=== PATIENT | male | born 1950 | race Two or more races ===

== ENCOUNTER → 2016-05-17 | Day surgery (SDC) | payer MEDICARE, MEDICAID ==
[2016-05-17] VITALS (9 sets, daily range): BP systolic 114–146; BP diastolic 78–95
[~2016-05-17] VITALS: Ht 185.4 cm; Wt 95.3 kg
[~2016-05-17] MED LIST: ASPIR 8181 MG ORAL; Alfentanil 2ml Inj ONE; Atropine Inj 1mg/10ml Syr IV PRN; Bupivacaine w/Epi 0.25% 30ml Vial INJ ONE; CARISOPRODOL250 MG ORAL; CATAPRES0.2 MG ORAL; DILTIAZEM 24HR120 M1 ORAL; Dexamethasone 4mg/ml vial ONE; DiphenhydrAMINE 50mg/ml Inj IVP PRN; GABAPENTIN400 MG ORAL; GEMFIBROZIL600 MG ORAL; HYDROCODON-ACE1 EA16 ORAL; HYDROXYZINE HCL10 M1 PO; Hydromorphone 0.5mg/0.5ml inj IVP PRN; Hydromorphone 0.5mg/0.5ml inj ONE; Ketorolac 30mg Inj IV PRN; Ketorolac 60mg Inj IV PRN; LORAZEPAM0.5 MG ORAL; LORazepam Inj 2mg/ml 1ml IV PRN; LR 1000ml 1,000 ML IVLG SCH; LR 1000ml ONE; Labetalol 5mg/ml 20ml vial IV PRN; Lidocaine 1% MPF 10mg/ml 5ml ONE; Meperidine 25mg/ml Inj IV PRN; Metoclopramide 10mg/2ml Inj IVP PRN; Midazolam 2mg/2ml Inj IVP PRN; Midazolam 2mg/2ml Inj ONE; NS Irrig 1000ml IRRIG ONE; NS Irrig 1000ml ONE; Norco 5mg/325mg tab ORAL PRN; Norco 7.5mg/325mg tab ORAL PRN; OMEPRAZOLE40 M1 ORAL; Oxycodone/Acetaminophen 5-325 ORAL PRN; Propofol 10mg/ml 20ml IV ONE; Sterile Water Irrig 1000ml IRRIG ONE; TRAMADOL HCL50 MG ORAL; fentaNYL 100 mcg/2 mL IV PRN; hydromorphone PO
--- NOTE | 2016-05-17 06:53 | Anethesia Preoperative Eval ---
Anesthesia Pre-op PMH/ROS General Date of Evaluation: May 17, 2016 Time of Evaluation: 07:11 Anesthesiologist: Leno ASA Score: ASA 3 Mallampati Score Class I : Soft palate, uvula, fauces, pillars visible Class II: Soft palate, uvula, fauces visible Class III: Soft palate, base of uvula visible Class IV: Only hard plate visible Mallampati Classification: Class II Surgeon: Rashi Diagnosis: Soft Tissue Mass Post Occipital Area Surgical Procedure: Remove Soft Tissue Mass Post Occipital Area Anesthesia History: none Family History: no anesthesia problems Allergies: Coded Allergies: MORPHINE (Verified Allergy, Unknown, HIVES; "WEIRD FEELING", 05/16/16) Medications: see eMAR Past Medical History Cardiovascular: Reports: HTN, other - HL Pulmonary: Reports: other - Lung CA, Lobectomy HEENT: Reports: glaucoma Hematology/Immune: Reports: anemia, other - Lung CA PSxH Narrative: R Lung Lobectomy, Parathyroidectomy, RIH repair, Mult Spine Sxs Anesthesia Pre-op Phys. Exam Physician Exam Last Vital Signs Date Time Temp Pulse Resp B/P Pulse Ox O2 Delivery O2 Flow Rate FiO2 05/17/16 06:22 98.1 98 18 142/89 98 Room Air Constitutional: NAD Neurologic: CN 2-12 intact Cardiovascular: RRR Respiratory: CTA Gastrointestinal: S/NT/ND Airway Exam Mallampati Score: Class II MO: limited ROM: limited Teeth: missing, intact Anesthesia Pre-op A/P Risk Assessment & Plan Assessment: ASA 3 Plan: ASA 3 Status Change Before Surgery: No Pre-Antibiotics Dru Gram Ancef IV Given Within 1 Hr of Incision: Yes Time Given: 07:26 Les Burr MD May 17, 2016 06:53
--- NOTE | 2016-05-17 06:57 | Immediate Post-Op Evaluation ---
Immediate Post-Op Evalulation Immediate Post-Op Evalulation Procedure: Remove Soft Tissue Mass Post Occipital Area Date of Evaluation: May 17, 2016 Time of Evaluation: 08:30 IV Fluids: 600 LR Blood Products: 0 Estimated Blood Loss: 7 Urinary Output: 0 Blood Pressure Systolic: 124 Blood Pressure Diastolic: 87 Pulse Rate: 74 Respiratory Rate: 16 O2 Sat by Pulse Oximetry: 100 Temperature (Fahrenheit): 98.6 Pain Score (1-10): 2 Nausea: No Vomiting: No Complications 0 Patient Status: awake, reacts, patent, extubated, none Hydration Status: adequate Dru Gram Ancef IV Given Within 1 Hr of Incision: Yes Time Given: 07:26 Les Burr MD May 17, 2016 06:57
--- NOTE | 2016-05-17 07:20 | Pre-Procedure Note/Attestation ---
Pre-Procedure Note/Attestation Complete Prior to Procedure Procedure Narrative: excision of parietal scalp soft tissue mass. Indications for Procedure Pre-Operative Diagnosis: occipital scalp soft tissue mass. Attestation I attest that I discussed the nature of the procedure; its benefits; risks and complications; and alternatives (and the risks and benefits of such alternatives ), prior to the procedure, with the patient (or the patient's legal containers sales representative). I attest that, if there was a reasonable possibility of needing a blood transfusion, the patient (or the patient's legal containers sales representative) was given the [facility] standardized written summary, pursuant to the [place] Blood Safety Act ([place] Health and Safety Code # 1645, as amended). I attest that I re-evaluated the patient just prior to the surgery and that there has been no change in the patient's H&P, except as documented below: GO SEYMOUR May 17, 2016 07:20
--- NOTE | 2016-05-17 08:20 | Brief Operative Note ---
Immediate Post Operative Note Operative Note Pre-op Diagnosis: occipital scalp soft tissue mass. Procedure: excision occipital scalp soft tissue mass Post-op Diagnosis: same as pre-op Surgeon: saul Anesthesiologist: Leno Anesthesia: general Specimen: yes Complications: none Condition: stable Estimated Blood Loss: minimal Drains: none Implant(s) used?: No GO SEYMOUR May 17, 2016 08:20
--- NOTE | 2016-05-17 11:58 | Operative Note - Dictated ---
DATE OF OPERATION: 05/17/2016 SURGEON: Hernan Markham M.D. LABOR REPRESENTATIVE: None. ANESTHESIOLOGIST: Les Burr M.D. ANESTHESIA: General. POSTOPERATIVE DIAGNOSIS: Large posterior occipital soft tissue mass. POSTOPERATIVE DIAGNOSIS: Large posterior occipital soft tissue mass. NAME OF OPERATION: Excision of large posterior occipital soft tissue mass. FINDINGS AND INDICATIONS: The patient is a very pleasant, 65-year-old male with a history of progressively enlarging right occipital just off the midline soft tissue mass at the junction with the parietal scalp. Because of the increasing size and slight discomfort when lying on it, the patient opted to undergo removal after he saw his attending physician, Dr. Steve Mulligan, who also advised him to have it out. At surgery indeed a very well and capsulated multi lobulated lipoma toy structure was found down to the gallium and the muscles of the neck insertion, and was removed in its entirety as described. PROCEDURE: With the patient lying on the left side on the operating table, with a LMA device in place for anesthetic, with local anesthesia with the entire left occipital and parietal regions prepped and draped in usual sterile fashion with the ChloraPrep, after a complete time-out, a transverse incision was carried out over the soft tissue mass. Subcutaneous tissues were divided, careful dissection was then undertaken in its entirety all the way around the mass removing all the little loculations and down into the gallium. The area was irrigated with ample amounts of normal saline. Hemostasis was double checked which was adequate with the cautery and the edges were approximated with 3-0 Vicryl interrupted sutures. Then the subcutaneous tissues and then 2-0 nylon mattress sutures on the skin. The sterile dressing with 2 x 2 cm and Tegaderm was placed. The patient tolerated the procedure well. ESTIMATED BLOOD LOSS: Less than 10 mL. Sponge and needle counts correct. He went to the recovery room in stable condition. Hernan Markham M.D. DR: Rodo JOB#: [id number] CC:
== END | disposition home or self-care (01) ==
LOC: SUR 05:41
DX: D17.0 Benign lipomatous neoplasm of skin and subcutaneous tissue of head, face and neck (principal); E78.00 Pure hypercholesterolemia, unspecified; D64.9 Anemia, unspecified; E21.3 Hyperparathyroidism, unspecified; H93.19 Tinnitus, unspecified ear; I12.9 Hypertensive chronic kidney disease with stage 1 through stage 4 chronic kidney disease, or unspecified chronic kidney disease; N18.3 Chronic kidney disease, stage 3 (moderate); I25.10 Atherosclerotic heart disease of native coronary artery without angina pectoris; H40.9 Unspecified glaucoma; M48.00 Spinal stenosis, site unspecified; Z85.118 Personal history of other malignant neoplasm of bronchus and lung; Z90.2 Acquired absence of lung [part of]; Z87.891 Personal history of nicotine dependence; Z88.5 Allergy status to narcotic agent; Z79.82 Long term (current) use of aspirin; Z79.899 Other long term (current) drug therapy
CPT/HCPCS: 21011; J0690; J1100; J1170; J2250; J2405; J2704; J3490; J7120; 94003; 94150